=== PATIENT | female | born 1965 | race Caucasian/White ===

== ENCOUNTER 2016-07-20 09:09 | Emergency (ER) | payer MEDICAID ==
[2016-07-20] MEDS ORDERED: OPTIRAY 350 100 ML VIAL HMH IV ONE (09:10)
[2016-07-20] MEDS ORDERED: PROMETHAZINE 25 MG/ML VIAL ONE (09:50)
[2016-07-20] MEDS ORDERED: DILAUDID 1 MG/ML AMP ONE (09:51)
[2016-07-20] MEDS ORDERED: SODIUM CHLORIDE 0.9% 1,000 ML ONE (09:51)
[2016-07-20] MEDS ORDERED: SODIUM CHLORIDE 0.9% 50 ML IV ONE (09:51)
[2016-07-20] MEDS ORDERED: ONDANSETRON 4 MG VIAL ONE (12:23)
== END 2016-07-20 16:29 | disposition home or self-care (01) ==
LOC: ER 09:09
CPT/HCPCS: 36415; 74022; 74177; 80053; 81003; 83690; 85025; 96361; 96365; 96375